=== PATIENT | female | born 1950 | race Caucasian/White ===

== ENCOUNTER → 2019-02-14 | Outpatient (CLI) | payer BC, MEDICARE ==
[~2019-02-14] MED LIST: AEC81 PO; ATOR10 PO; CA C1TAB99 PO; CALC-1009 PO; GLUC-145 PO; LEVO150 GT; MIGRAINE MED PO; OMEG1CAP83 PO; PARO-37 PO; VIT E PO
== END | disposition home or self-care (01) ==
LOC: RAH 13:53
PROVIDERS: ATTEND Family Medicine
DX: N20.0 Calculus of kidney (principal); M51.36 Other intervertebral disc degeneration, lumbar region; Z90.49 Acquired absence of other specified parts of digestive tract
CPT/HCPCS: 74176

== ENCOUNTER 2021-04-07 10:21 | Observation (INO) | payer BC, MEDICARE ==
[~2021-04-07] VITALS: Ht 165.1 cm; Wt 83.2 kg
[2021-04-07] MEDS ORDERED: KETOROLAC 15MG/ML VIAL (15MG/ML) ONE (11:24)
[2021-04-07] MEDS ORDERED: KETOROLAC 15MG/ML VIAL (15MG/ML) IV ONE (11:30)
[2021-04-07] MEDS ORDERED: KETOROLAC 15MG/ML VIAL (15MG/ML) IM ONE (11:30)
[2021-04-07 11:44] LABS: BASOPHILS % (AUTO) 0.8 % (0.0-5.0); HEMATOCRIT 38.8 % (36-48); LYMPHOCYTES % (AUTO) 17.2 % (21.0-51.0); MEAN CORPUSCULAR HEMOGLOBIN 33.1 pg (27.0-33.0); MEAN CORPUSCULAR HGB CONC 34.3 g/dL (32.0-36.0); MEAN CORPUSCULAR VOLUME 96.5 fL (79-99); MONOCYTES % (AUTO) 5.6 % (3.0-13.0); NEUTROPHILS % (AUTO) 74.5 % (40.0-77.0); PLATELET COUNT (AUTO) 413 K/uL (130-400); RED BLOOD CELL COUNT(AUTO) 4.02 MIL/uL (4.00-5.50); RED CELL DISTRIBUTION WIDTH 12.6 % (11.0-15.5); WHITE BLOOD COUNT (AUTO) 9.7 K/uL (4.8-10.8)
[2021-04-07 12:03] LABS: CREATININE 1.1 mg/dL (0.5-1.5); POTASSIUM 3.5 mmol/L (3.5-5.1)
[2021-04-07 12:05] LABS: ALBUMIN 3.9 g/dL (3.5-5.0); BILIRUBIN,TOTAL 0.8 mg/dL (0.2-1.0); TOTAL PROTEIN, SERUM 7.3 g/dL (6.0-8.3)
[2021-04-07] MEDS ORDERED: IOHEXOL-350 75 ML VIAL IV ONE (13:01)
[2021-04-07 13:07] LABS: APPEARANCE,URINE Clear (CLEAR); BILIRUBIN,URINE Negative (NEGATIVE); COLOR,URINE Yellow (YELLOW); GLUCOSE, URINE (UA) Negative (NEGATIVE); KETONES,URINE 15 mg/dL (NEGATIVE); LEUKOCYTE ESTERASE ,URINE Trace (NEGATIVE); NITRATE,URINE Negative (NEGATIVE); OCCULT BLOOD,URINE Negative (NEGATIVE); PROTEIN,URINE POS 1+ mg/dL (NEGATIVE); UROBILINOGEN,URINE 0.2 mg/dL (0.2-1.0)
[2021-04-07 13:22] LABS: BACTERIA,URINE Rare /HPF (None Seen); RBC,URINE 0-1 /HPF (0-1); SQUAMOUS EPITHELIAL CELL,UR Rare /HPF (0-2); WBC,URINE 0-1 /HPF (0-1)
[2021-04-07] MEDS ORDERED: 0.9%NACL 1000ML 1,000 ML IV ONE (13:45)
[2021-04-07] MEDS ORDERED: LORAZEPAM 2 MG/ML 1 ML VIAL IVP ONE (13:45)
[2021-04-07] MEDS ORDERED: LACTULOSE 20 GM/30 ML UDCUP PO PRN (15:30)
[2021-04-07] MEDS ORDERED: ACETAMINOPHEN 325 MG TAB PO PRN (15:30)
[2021-04-07] MEDS ORDERED: ONDANSETRON 4MG INJ IV PRN (15:30)
[2021-04-07] MEDS ORDERED: NITROGLYCERIN 0.4 MG SL TAB SL PRN (15:30)
[2021-04-07] MEDS ORDERED: ASPIRIN 300 MG SUPPOSITORY PR ONE ×2 (15:41→17:00)
[2021-04-07] MEDS ORDERED: FAMOTIDINE 20MG VIAL IV SCH (21:00)
[2021-04-07 23:17] VITALS: BP 139/68
[2021-04-08 03:10] VITALS: BP 130/65
[2021-04-08 05:21] LABS: BASOPHILS % (AUTO) 0.7 % (0.0-5.0); EOSINOPHILS % (AUTO) 1.1 % (0.0-8.0); LYMPHOCYTES % (AUTO) 33.8 % (21.0-51.0); MEAN CORPUSCULAR HEMOGLOBIN 32.9 pg (27.0-33.0); MEAN CORPUSCULAR HGB CONC 34.7 g/dL (32.0-36.0); MEAN CORPUSCULAR VOLUME 94.7 fL (79-99); MONOCYTES % (AUTO) 10.4 % (3.0-13.0); NEUTROPHILS % (AUTO) 53.7 % (40.0-77.0); PLATELET COUNT (AUTO) 371 K/uL (130-400); RED BLOOD CELL COUNT(AUTO) 3.59 MIL/uL (4.00-5.50); RED CELL DISTRIBUTION WIDTH 12.6 % (11.0-15.5)
[2021-04-08 05:45] LABS: ALBUMIN 3.2 g/dL (3.5-5.0); BILIRUBIN,TOTAL 1.1 mg/dL (0.2-1.0); POTASSIUM 3.1 mmol/L (3.5-5.1); TOTAL PROTEIN, SERUM 6.2 g/dL (6.0-8.3)
[2021-04-08] MEDS: ACETAMINOPHEN 325 MG TAB PO PRN ×2 (05:58→13:35)
[2021-04-08 07:52] VITALS: BP 139/67
[2021-04-08] MEDS ORDERED: ENOXAPARIN SODIUM 40 MG/0.4 ML SYRINGE SQ SCH (09:00)
[2021-04-08] MEDS ORDERED: CLOPIDOGREL 75MG TAB PO SCH (09:00)
[2021-04-08] MEDS ORDERED: CLOP75TA14 PO (10:48)
[2021-04-08] MEDS ORDERED: GABA100C PO (10:48)
[2021-04-08] MEDS ORDERED: ATOR40TA71 PO (10:52)
[2021-04-08] MEDS ORDERED: LISI5TAB21 PO (10:52)
[2021-04-08] MEDS ORDERED: LISINOPRIL 5 MG TABLET PO SCH (11:00)
[2021-04-08] MEDS ORDERED: KCL 20 MEQ ERTAB PO SCH (11:00)
[2021-04-08 11:17] VITALS: BP 144/70
[2021-04-08] MEDS ORDERED: GABAPENTIN 100 MG CAPSULE ONE (12:55)
[2021-04-08] MEDS ORDERED: GABAPENTIN 100 MG CAPSULE PO SCH (14:00)
[2021-04-09] MEDS ORDERED: LISINOPRIL 5 MG TABLET PO SCH (09:00)
== END 2021-04-08 16:23 | disposition home or self-care (01) ==
LOC: EDH 10:21 → OBSVTOIN 15:19 → INTOOBSV 15:19 → EDHIP 15:19 → 4CH 22:42 → 4BH 04-08 09:25
PROVIDERS: ADMIT Internal Medicine; ATTEND Internal Medicine
DX: G45.9 Transient cerebral ischemic attack, unspecified (principal); R41.82 Altered mental status, unspecified; R47.01 Aphasia; E78.5 Hyperlipidemia, unspecified; E03.9 Hypothyroidism, unspecified; F41.8 Other specified anxiety disorders; Z88.0 Allergy status to penicillin; Z79.899 Other long term (current) drug therapy; Z79.82 Long term (current) use of aspirin; Z90.710 Acquired absence of both cervix and uterus; Z88.6 Allergy status to analgesic agent; Z91.14 Patient's other noncompliance with medication regimen
CPT/HCPCS: 36415 ×2; 70450; 70496; 70498; 70551; 80053 ×2; 80061; 81001; 83036; 84484; 85025 ×2; 85651; 92522; 92610; 93005 ×3; 93880; 96361; 96372; 96374; 96375; 97161; 99291; G0378 ×24; J1650; J1885; J2060; J3490; Q9967

== ENCOUNTER 2022-11-20 02:34 | Emergency (ER) | payer MEDICARE, OTHER ==
[~2022-11-20] VITALS: Ht 165.1 cm; Wt 77.1 kg
[~2022-11-20 02:34] MED LIST changes: -AEC81 PO; -ATOR10 PO; +ATOR40TA71 PO; -CA C1TAB99 PO; -CALC-1009 PO; +CLOP-31 PO; +GABA100C PO; -GLUC-145 PO; -LEVO150 GT; +LISI5TAB21 PO; -MIGRAINE MED PO; -OMEG1CAP83 PO; -PARO-37 PO; -VIT E PO
[2022-11-20] MEDS ORDERED: MORPHINE 4 MG SYG ONE (03:16)
[2022-11-20] MEDS ORDERED: ONDANSETRON 4MG INJ ONE (03:16)
[2022-11-20] MEDS ORDERED: DiphenhydrAMINE HCL 50 MG/ML VIAL ONE (03:16)
[2022-11-20] MEDS ORDERED: METOCLOPRAMIDE 10 MG/2 ML VIAL ONE (03:16)
[2022-11-20] MEDS ORDERED: LIDOCAINE HCL 1% 20 ML VIAL ONE (03:28)
[2022-11-20] MEDS ORDERED: DiphenhydrAMINE HCL 50 MG/ML VIAL IV ONE (03:30)
[2022-11-20] MEDS ORDERED: MORPHINE 4 MG SYG IVP ONE (03:30)
[2022-11-20] MEDS ORDERED: METOCLOPRAMIDE 10 MG/2 ML VIAL IVP ONE (03:30)
[2022-11-20] MEDS ORDERED: ONDANSETRON 4MG INJ IVP ONE (03:30)
[2022-11-20 04:08] LABS: MEAN CORPUSCULAR HEMOGLOBIN 32.8 pg (27.0-33.0); MEAN CORPUSCULAR VOLUME 93.7 fL (79-99); PLATELET COUNT (AUTO) 393 K/uL (130-400); RED BLOOD CELL COUNT(AUTO) 3.63 MIL/uL (4.00-5.50); RED CELL DISTRIBUTION WIDTH 12.4 % (11.0-15.5); WHITE BLOOD COUNT (AUTO) 10.3 K/uL (4.8-10.8)
[2022-11-20 04:22] LABS: CREATININE 1.2 mg/dL (0.5-1.5); POTASSIUM 3.6 mmol/L (3.5-5.1)
[2022-11-20 04:23] LABS: ALBUMIN 3.4 g/dL (3.5-5.0); TOTAL PROTEIN, SERUM 6.7 g/dL (6.0-8.3)
[2022-11-20 04:33] LABS: INR 0.93 (0.85-1.15); PROTHROMBIN TIME 9.9 SEC (9.6-11.6)
[2022-11-20 04:34] LABS: PARTIAL THROMBOPLASTIN TIME 23.9 SEC (26.3-35.5)
[2022-11-20 05:13] VITALS: BP 118/60
[2022-11-20 05:22] LABS: ERYTHROCYTE SEDIMENTATION RATE 30 MM/HR (0-30)
[2022-11-20] MEDS ORDERED: IBUP-1493 PO (05:25)
[2022-11-20 05:51] LABS: EOSINOPHILS % (MANUAL) 5 % (1-6); LYMPHOCYTES % (MANUAL) 13 % (22-44); MONOCYTES % (MANUAL) 7 % (2-9); SEGMENTED NEUTROPHILS % 75 % (40-70)
[2022-11-20 05:52] LABS: MAN.DIFF COMMENT-IMPRESSION MANUAL DIFFERENTIAL; PLATELET MORPHOLOGY COMMENT ADEQUATE
== END 2022-11-20 05:39 | disposition home or self-care (01) ==
LOC: EDH 02:34
DX: G43.909 Migraine, unspecified, not intractable, without status migrainosus (principal); I10 Essential (primary) hypertension; E78.00 Pure hypercholesterolemia, unspecified; Z88.0 Allergy status to penicillin; Z88.8 Allergy status to other drugs, medicaments and biological substances; Z79.899 Other long term (current) drug therapy
CPT/HCPCS: 99285; 96374; 96375; 70450; 80053; 85025; 85610; 85730; 85651; 82948; 36415; J1200; J2405; J2270; J2765

== ENCOUNTER → 2023-01-26 | Outpatient (CLI) | payer OTHER ==
[~2023-01-26] MED LIST changes: +IBUP-1493 PO
== END | disposition home or self-care (01) ==
LOC: SHCH 08:11
PROVIDERS: ATTEND Internal Medicine Cardiovascular Disease
DX: R07.9 Chest pain, unspecified (principal)
CPT/HCPCS: 93306

== ENCOUNTER → 2023-02-03 | Outpatient (CLI) | payer OTHER ==
[~2023-02-03] MED LIST changes: +REGADENOSON 0.4 MG/5 ML PF SYG IVP ONE
== END | disposition home or self-care (01) ==
LOC: SHCH 08:15
PROVIDERS: ATTEND Internal Medicine Cardiovascular Disease
DX: R94.39 Abnormal result of other cardiovascular function study (principal); R07.9 Chest pain, unspecified
CPT/HCPCS: 78452; 96374; 93017; J2785; A9500 ×2

== ENCOUNTER → 2023-02-13 | Outpatient (CLI) | payer OTHER ==
[~2023-02-13] MED LIST changes: -REGADENOSON 0.4 MG/5 ML PF SYG IVP ONE
== END | disposition home or self-care (01) ==
LOC: SHCH 09:06
PROVIDERS: ATTEND Internal Medicine Cardiovascular Disease
DX: I25.10 Atherosclerotic heart disease of native coronary artery without angina pectoris (principal)
CPT/HCPCS: 93880

== ENCOUNTER → 2023-08-26 | Outpatient (CLI) | payer OTHER | LOC: SHCH 15:41 | PROVIDERS: ATTEND Internal Medicine Cardiovascular Disease | DX: I73.9 Peripheral vascular disease, unspecified (principal) | CPT/HCPCS: 93925 ==